=== PATIENT | male | born 1985 | race African-American/Black ===

== ENCOUNTER 2021-12-17 07:51 | Emergency (ER) | payer MEDICAID ==
[~2021-12-17] VITALS: Ht 170.2 cm; Wt 65.9 kg
[2021-12-17 07:54] VITALS: BP 115/78
[2021-12-17] MEDS: IBUPROFEN 600 MG TABLET PO ONE (08:25)
[2021-12-17] MEDS ORDERED: IBUP-2070 PO (08:32)
== END 2021-12-17 08:35 | disposition home or self-care (01) ==
LOC: EMS 07:51
DX: M54.6 Pain in thoracic spine (principal); V49.49XA Driver injured in collision with other motor vehicles in traffic accident, initial encounter; Y93.89 Activity, other specified; Y92.89 Other specified places as the place of occurrence of the external cause; Y99.8 Other external cause status
CPT/HCPCS: 99283